=== PATIENT | male | born 2000 | race Two or more races ===

== ENCOUNTER 2024-07-20 09:18 | Emergency (ER) | payer OTHER, SELFPAY ==
[2024-07-20 09:20] VITALS: BP 100/84
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
[2024-07-20 10:05] LABS: % Basophils 0.8 % (0-2); % Eosinophils 3.2 % (0-6); % Immature Granulocytes 0.4 % (0-0.5); % Lymphocytes 16.4 % (20.5-51.1); % Monocytes 7.4 % (1.7-9.3); % Neutrophils 71.8 % (42.2-75.2); Absolute Basophils 0.1 10^3/uL (0-0.2); Absolute Eosinophils 0.4 10^3/uL (0-0.7); Absolute Immature Granulocytes 0.1 10^3/uL (0-0.05); Absolute Monocytes 0.9 10^3/uL (0.1-0.6); Absolute Neutrophils 8.6 10^3/uL (1.4-6.5); Hematocrit 43.7 % (39.0-52.0); Hemoglobin 14.8 g/dL (13.0-18.0); Mean Corp Hgb Conc. 33.9 g/dL (33.0-37.0); Mean Corpuscular Hgb 26.9 pg (27.0-31.0); Mean Corpuscular Volume 79.5 fL (80.0-94.0); Mean Platelet Volume 12.6 fL (7.4-10.4); Nucleated Red Blood Cells % 0 % (-); Platelet Count 238 10^3/uL (130-400); Red Cell Dist. Width 13.1 % (11.5-14.5)
[2024-07-20 10:17] LABS: ALT (SGPT) 25 U/L (0-50); AST (SGOT) 37 U/L (17-59); Albumin 5.1 g/dl (3.5-5.0); Alkaline Phosphatase 64 U/L (38-126); Blood Urea Nitrogen 18 mg/dl (9-20); Calcium 10.7 mg/dl (8.4-10.2); Carbon Dioxide 23 mmol/L (22-30); Chloride 103 mmol/L (98-107); Glucose 97 mg/dl (70-99); Potassium 5.2 mmol/L (3.5-5.1); Sodium 140 mmol/L (135-145); Total Bilirubin 1.3 mg/dl (0.2-1.3); Total Protein 8.1 g/dl (6.3-8.2); eGFR > 60.00
[2024-07-20 10:46] LABS: TSH Reflex To Free T4 4.16 uIU/ml (0.47-4.68)
[2024-07-20] MEDS: SAPHRIS 10 MG SL (10:51)
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
== END 2024-07-20 14:12 | disposition home or self-care (01) ==
LOC: EMR 09:18
PROVIDERS: CONSULT PHYSICIAN Psychiatry & Neurology Psychiatry; EMERGENCY PHYSICIAN Emergency Medicine
DX: F32.3 Major depressive disorder, single episode, severe with psychotic features (principal); R45.850 Homicidal ideations; F22 Delusional disorders; E03.9 Hypothyroidism, unspecified; K58.9 Irritable bowel syndrome, unspecified; F17.290 Nicotine dependence, other tobacco product, uncomplicated
CPT/HCPCS: 99284; 80053; 84443; 85025

== ENCOUNTER 2024-11-05 18:38 | Emergency (ER) | payer OTHER, SELFPAY ==
[2024-11-05] VITALS (7 sets, daily range): BP systolic 98–120; BP diastolic 43–65
[2024-11-05] MEDS: NSS 1000 IV (19:03)
[2024-11-05] MEDS: ATIVAN 2 MG IV (19:04)
--- NOTE | 2024-11-05 19:05 | ED.GENMED ---
History of Present Illness
<Filiberto Murphy DO - Last Filed: 11/07/24 17:48>
General
Chief Complaint: Overdose Unintentional
Source: ambulance crew
Time Seen by Provider: 11/05/24 18:42
History of Present Illness
History of Present Illness:
24-year-old male presents to the emergency room via ambulance. He evidently called 911 himself from his family home. When medics arrived he was awake but not answering questions. There appeared to be a significant amount of THC ampules and vapes
about. His family did endorse the fact he uses THC significantly. Patient had been at his baseline earlier today. Here the patient will smile at certain questions but is not answering questions. He did yell out which when an IV was placed and
became a bit agitated requiring him to be restrained for the IV placement.
Past History
<Filiberto Murphy DO - Last Filed: 11/07/24 17:48>
Past History
ED Past Medical History: Hypothyroidism and Other (IBS)
ED Past Surgical History: None
Social History
Tobacco: Former smoker
Alcohol: None
Drug: Marijuana (occassional)
Personal: Single
Living: with family
Employment: Student
Phy Exam
<Filiberto Murphy DO - Last Filed: 11/07/24 17:48>
Physical Exam
Physical Exam:
General: Awake but not answering questions.
Vitals: unremarkable
Head: Atraumatic
Eyes: Pupils equal at 5 mm, EOMI
Throat: Airway intact, no exudates
Neck: Trachea midline
Lungs: Clear and equal b/l
Heart: Regular rate, no murmurs
Abd: Soft, Nontender, No pulsatile mass
Neuro: Cranial nerves intact, patient does not move to command but is moving all extremities spontaneously, muscle strength equal bilaterally
Skin: Warm, dry, no rash
Extremities: pulses equal b/l, no edema
Course
<Filiberto HOctavio Murphy, DO - Last Filed: 11/07/24 17:48>
Orders/Labs/Results
Orders:
Orders
11/05/24 18:53
Lorazepam [Ativan] 2 mg .ROUTE .STK-MED ONE
11/05/24 18:57
Urine Drug Abuse Screen Urgent
Date Specimen was Collected: 11/06/24
Time Specimen was Collected: 01:09
0.9% Sodium Chloride 1000 ml [Nss] 1,000 ml IV BOLUS
11/05/24 19:00
Acetaminophen Urgent
Alcohol Urgent
Complete Blood Count/With Diff Urgent
Comprehensive Metabolic Panel Urgent
Salicylate Urgent
11/05/24 19:03
Lorazepam [Ativan] 2 mg IV NOW STA
11/05/24 19:08
Electrocardiogram (*1) Urgent
Reason for Study: QTc Monitoring
EKG- Treatment ONCE
11/05/24 19:39
CT Head W/o Iv Contrast Urgent
Comment:
Reason For Exam: altered mental status
11/06/24 01:10
Fentanyl, Urine Urgent
11/06/24 01:37
Asenapine Sublingual [Saphris] 5 mg .ROUTE .STK-MED ONE
Asenapine Sublingual [Saphris] 5 mg SL NOW STA
Abnormal Lab Results
11/05/24 11/06/24
19:00 01:10
WBC 13.3 H 10^3/uL
(4.8-10.8)
MPV 12.7 H fL
(7.4-10.4)
Abs Immat Gran (auto) 0.1 H 10^3/uL
(0-0.05)
Absolute Neuts (auto) 7.9 H 10^3/uL
(1.4-6.5)
Absolute Lymphs (auto) 3.6 H 10^3/uL
(1.2-3.4)
Absolute Monos (auto) 1.1 H 10^3/uL
(0.1-0.6)
BUN 22 H mg/dl
(9-20)
Glucose 121 H mg/dl
(70-99)
Salicylates < 1.0 L mg/dl
(2.0-20.0)
Acetaminophen < 10 L ug/ml
(10-30)
U Benzodiazepines Scrn Positive H
(Negative)
U Marijuana (THC) Screen Positive H
(Negative)
11/05/24 19:00
11/05/24 19:00
Vital Signs
Initial and Last Documented VS:
Initial Vital Signs
Pulse Resp
89 28
11/05/24 18:42 11/05/24 18:42
Last Documented Vital Signs
Temp Pulse Resp BP Pulse Ox
97.7 F 64 15 104/64 99
11/06/24 06:12 11/06/24 07:11 11/06/24 07:11 11/06/24 07:11 11/06/24 07:11
<Faviola Gannon, DO - Last Filed: 11/06/24 07:06>
Orders/Labs/Results
Orders:
Orders
11/05/24 18:53
Lorazepam [Ativan] 2 mg .ROUTE .STK-MED ONE
11/05/24 18:57
Urine Drug Abuse Screen Urgent
Date Specimen was Collected: 11/06/24
Time Specimen was Collected: 01:09
0.9% Sodium Chloride 1000 ml [Nss] 1,000 ml IV BOLUS
11/05/24 19:00
Acetaminophen Urgent
Alcohol Urgent
Complete Blood Count/With Diff Urgent
Comprehensive Metabolic Panel Urgent
Salicylate Urgent
11/05/24 19:03
Lorazepam [Ativan] 2 mg IV NOW STA
11/05/24 19:08
Electrocardiogram (*1) Urgent
Reason for Study: QTc Monitoring
EKG- Treatment ONCE
11/05/24 19:39
CT Head W/o Iv Contrast Urgent
Comment:
Reason For Exam: altered mental status
11/06/24 01:10
Fentanyl, Urine Urgent
11/06/24 01:37
Asenapine Sublingual [Saphris] 5 mg .ROUTE .STK-MED ONE
Asenapine Sublingual [Saphris] 5 mg SL NOW STA
Abnormal Lab Results
11/05/24 11/06/24
19:00 01:10
WBC 13.3 H 10^3/uL
(4.8-10.8)
MPV 12.7 H fL
(7.4-10.4)
Abs Immat Gran (auto) 0.1 H 10^3/uL
(0-0.05)
Absolute Neuts (auto) 7.9 H 10^3/uL
(1.4-6.5)
Absolute Lymphs (auto) 3.6 H 10^3/uL
(1.2-3.4)
Absolute Monos (auto) 1.1 H 10^3/uL
(0.1-0.6)
BUN 22 H mg/dl
(9-20)
Glucose 121 H mg/dl
(70-99)
Salicylates < 1.0 L mg/dl
(2.0-20.0)
Acetaminophen < 10 L ug/ml
(10-30)
U Benzodiazepines Scrn Positive H
(Negative)
U Marijuana (THC) Screen Positive H
(Negative)
11/05/24 19:00
11/05/24 19:00
Vital Signs
Initial and Last Documented VS:
Initial Vital Signs
Pulse Resp
89 28
11/05/24 18:42 11/05/24 18:42
Last Documented Vital Signs
Temp Pulse Resp BP Pulse Ox
97.7 F 64 15 104/64 99
11/06/24 06:12 11/06/24 07:11 11/06/24 07:11 11/06/24 07:11 11/06/24 07:11
<Filiberto Murphy, DO - Last Filed: 11/07/24 17:48>
MDM/Problems Addressed
Differential Diagnosis Includes:
alcohol intox, marijuana/thc intoxication, intracranial bleed
MDM/Problems Addressed:
Patient presents to the emergency room with decreased level of consciousness, being nonverbal. Evidently the patient called 9 1 himself. Patient became somewhat agitated here in the emergency room with the IV stick. He did require to be
restrained for short time until the IV was over. Patient was given 2 mg of lorazepam which did adequately calm him down. At the time my shift was over the patient was still sleeping. He was arousable and stable but not at a situation where he can
be discharged. Patient signed out to Dr. Gannon.
<Faviola Gannon DO - Last Filed: 11/06/24 07:06>
*Radiology
Radiology exam reviewed: radiology read reviewed
*Pulse Oximetry
Patient hypoxic: no
*Critical Care Note
Total Time (30-74mins, 75-104mins- exclusive of procedures): Not Applicable
<Faviola Gannon DO - Last Filed: 11/06/24 07:06>
Update Note
Update Note:
01:30
pt is now awake but remains quite confused, agitated, restless and only minimally verbal. He can be directed to a point but only fleetingly cooperative.
He remains at significant risk for fall
He remains hemodynamically stable
UDS is pending
Will medicate with Saphris
Continue 1:1 observation
Prior records reviewed. Patient was evaluated in this ED in June with concern for major depression with paranoid thoughts, evaluated by psychiatrist who suspected major depression with psychotic features. Recommended initiation of Lexapro as
well as Seroquel. Plan was for follow-up with [facility] psychiatric services.
At this point unclear if patient has been following with [facility]. Unclear if he is on any psychiatric medications.
During that ED visit in June there was report of no drug use however UDS 2020 was only positive for THC. UDS not performed during ED visit June 2024.
According to EMS report tonshannan, patient was found with multiple THC vape pens.
Current presentation could certainly be THC intoxication. Must also consider acute exacerbation of psychosis.
CT of the head is unremarkable.
He is afebrile. There has been no report of recent URI nor febrile illness. Nothing to suggest meningitis/encephalitis.
06:15
Patient has had no further agitation.
Has been sleeping after 1 dose of Saphris.
He is now awake, communicative, has ambulated to and from the bathroom to void.
He has consumed a snack as well as juice.
Currently offers no complaints, denies wanting to hurt himself.
He is eager to be discharged to home.
Will contact family.
Patient has been encouraged to discontinue THC use.
Prompt follow-up with PCP for recheck.
ED Attending Note
<Filiberto Murphy, DO - Last Filed: 11/07/24 17:48>
-
Portions of this chart may have been created with voice recognition software.� Occasional wrong word or��sound alike� substitutions may have occurred due to the inherent limitations of voice recognition software.
Discharge Plan
Departure
Patient Disposition: Home (Routine Discharge)
Date of Disposition: 11/06/24
Time of Disposition: 06:23
Patient with high blood pressure during this ER visit?: No
Condition: Good
Discharge Problem:
Accidental marijuana overdose
Instructions: Cannabis use disorder, Accidental Overdose (DC)
Prescriptions:
No Action
quetiapine [Seroquel XR] 50 mg tablet extended release 24 hr
50 mg PO HS Qty: 30 0RF
escitalopram oxalate [Lexapro] 10 mg tablet
10 mg PO ONCE Qty: 30 0RF
Referrals:
UNKNOWN - PT DOES,NOT KNOW [Family Provider] -
Interventions
Interventions:
*Risk Screen - Suicide Last Done: 11/05/24 18:44
*General Assessment Last Done: 11/05/24 18:44
*Neglect/Abuse Screening Last Done: 11/05/24 18:44
ED- Fall Risk Assessment Last Done: 11/05/24 23:21
*ED COVID-19 Vaccine History Last Done: 11/05/24 18:44
*Nursing Disposition Last Done: 11/06/24 07:36
ED- Cardiac Assessment Last Done: 11/05/24 21:21
ED- Neurological Assessment Last Done: 11/06/24 00:30
ED-Psychological Assessment Last Done: 11/06/24 00:30
ED- Pulmonary Assessment Last Done: 11/05/24 21:21
Discharge Date and Time
Discharge Date/Time: 11/06/24 07:36
Print Language: FIJIAN
[2024-11-05 19:07] LABS: % Basophils 0.5 % (0-2); % Eosinophils 4.6 % (0-6); % Immature Granulocytes 0.4 % (0-0.5); % Lymphocytes 27.4 % (20.5-51.1); % Monocytes 8.1 % (1.7-9.3); Absolute Basophils 0.1 10^3/uL (0-0.2); Absolute Eosinophils 0.6 10^3/uL (0-0.7); Absolute Immature Granulocytes 0.1 10^3/uL (0-0.05); Absolute Lymphocytes 3.6 10^3/uL (1.2-3.4); Absolute Monocytes 1.1 10^3/uL (0.1-0.6); Absolute Neutrophils 7.9 10^3/uL (1.4-6.5); Hematocrit 42.4 % (39.0-52.0); Mean Corpuscular Hgb 27.5 pg (27.0-31.0); Mean Corpuscular Volume 83.3 fL (80.0-94.0); Mean Platelet Volume 12.7 fL (7.4-10.4); Nucleated Red Blood Cells % 0 % (-); Platelet Count 214 10^3/uL (130-400); Red Blood Cell Count 5.09 10^6/uL (4.70-6.10); Red Cell Dist. Width 13.4 % (11.5-14.5); White Blood Cell Count 13.3 10^3/uL (4.8-10.8)
[2024-11-05 19:23] LABS: ALT (SGPT) 18 U/L (0-50); AST (SGOT) 23 U/L (17-59); Acetaminophen < 10 ug/ml (10-30); Albumin 4.4 g/dl (3.5-5.0); Alkaline Phosphatase 55 U/L (38-126); Blood Urea Nitrogen 22 mg/dl (9-20); Calcium 9.3 mg/dl (8.4-10.2); Carbon Dioxide 24 mmol/L (22-30); Chloride 105 mmol/L (98-107); Glucose 121 mg/dl (70-99); Potassium 4.7 mmol/L (3.5-5.1); Salicylate < 1.0 mg/dl (2.0-20.0); Sodium 141 mmol/L (135-145); Total Bilirubin 0.6 mg/dl (0.2-1.3); Total Protein 7.4 g/dl (6.3-8.2); eGFR > 60.00
[2024-11-05 19:27] LABS: Alcohol None Detected
[2024-11-06 00:06] VITALS: BP 118/72
[2024-11-06 00:25] VITALS: BP 131/76
[2024-11-06 01:35] LABS: Amphetamines Negative (Negative); Barbiturates Negative (Negative); Benzodiazepines Positive (Negative); Buprenorphine Negative (Negative); Cocaine Negative (Negative); Marijuana Positive (Negative); Methadone Negative (Negative); Methamphetamines Negative (Negative); Opiates Negative (Negative); Phencyclidine Negative (Negative); Tricyclic Antidepressants Negative (Negative)
[2024-11-06] MEDS: SAPHRIS 5 MG SL (01:43)
[2024-11-06 01:53] LABS: Fentanyl, Urine Negative (Negative)
[2024-11-06 05:55] VITALS: BP 102/70
[2024-11-06 07:11] VITALS: BP 104/64
== END 2024-11-06 07:36 | disposition home or self-care (01) ==
LOC: EMR 18:38
PROVIDERS: Emergency Medicine; EMERGENCY PHYSICIAN Emergency Medicine
DX: T40.711A Poisoning by cannabis, accidental (unintentional), initial encounter (principal); Y92.9 Unspecified place or not applicable; E03.9 Hypothyroidism, unspecified; K58.9 Irritable bowel syndrome, unspecified; Z87.891 Personal history of nicotine dependence
CPT/HCPCS: 99284; 96374; 96361; 70450; 80053; 80143; 80179; 80306; 80307; 82077; 85025; 93005

== ENCOUNTER 2024-11-21 10:03 | Emergency (ER) | payer OTHER, SELFPAY ==
[2024-11-21 10:18] VITALS: BP 112/73
--- NOTE | 2024-11-21 10:24 | ED.GENMED ---
ED Provider Triage
<Ricky Bob PA-C - Last Filed: 11/21/24 10:24>
-
Patient seen by provider in Triage?: Seen in Triage
Attestation: A medical screening examination has been initiated by a qualified medical provider. Based on the assessment performed at this time, it has been determined that an emergent medical condition may exist and the patient has been informed
that further medical evaluation and possible additional diagnostic testing may be needed.
HPI: 24-year-old male presents with family for voluntary psychiatric admission. He was apparently arrested recently for various charges and part of the terms of his roberto which to seek inpatient mental health admission. No reported SI or HI, no
reported illicit substance use.
GENERAL: Alert , in no apparent distress
EYE: No visual abnormalities.
NECK: Trachea midline
ENT: No visible abnormalities.
LUNGS: No acute respiratory distress
NEUROLOGICAL: Alert and oriented
SKIN: Skin intact. No visible changes.
MUSCULOSKELETAL: Moving extremities normally
PSYCH: Normal and appropriate interaction.
This is a medical evaluation conducted in person to initiate diagnostic evaluation and provide initial therapeutics. Please see further documentation by the treating clinician.
History of Present Illness
<Ricky Bob PA-C - Last Filed: 11/21/24 10:24>
General
Chief Complaint: Crisis Evaluation
Time Seen by Provider: 11/21/24 10:58
<Filiberto Murphy DO - Last Filed: 11/21/24 16:05>
General
Source: patient
History of Present Illness
History of Present Illness:
24-year-old male brought to the emergency room by his mother to seek inpatient psychiatric care. Evidently patient was arrested yesterday after he was found sneaking into a local high school. Patient was arrested. He evidently gave a false name
and claimed to be in eleventh-grader at the school. Patient was evidently brought before a accounting generalist who did allow the patient to be released on roberto but mandated he seek inpatient psychiatric care. No significant psychiatric history
Past History
<Ricky Bob PA-C - Last Filed: 11/21/24 10:24>
Past History
ED Past Medical History: Hypothyroidism and Other (IBS)
ED Past Surgical History: None
Social History
Tobacco: Former smoker
Alcohol: None
Drug: Marijuana (occassional)
Personal: Single
Living: with family
Employment: Student
Phy Exam
<Filiberto Murphy DO - Last Filed: 11/21/24 16:05>
Physical Exam
Physical Exam:
General: Awake, Alert, somewhat bizarre affect, no distress
Vitals: unremarkable
Head: Atraumatic
Eyes: Pupils equal, EOMI
Throat: Airway intact, no exudates
Neck: Trachea midline
Lungs: Clear and equal b/l
Heart: Regular rate, no murmurs
Abd: Soft, Nontender, No pulsatile mass
Neuro: Nonfocal
Skin: Warm, dry, no rash
Extremities: pulses equal b/l, no edema
Course
<Ricky Bob PA-C - Last Filed: 11/21/24 10:24>
Orders/Labs/Results
Orders:
Orders
11/21/24 10:23
Crisis Consult Urgent
Reason for Consult: erratic behavior
11/21/24 10:26
Complete Blood Count/With Diff Urgent
Comprehensive Metabolic Panel Urgent
TSH Urgent
11/21/24 12:17
Lorazepam [Ativan] 2 mg .ROUTE .STK-MED ONE
11/21/24 12:20
Lorazepam [Ativan] 2 mg IM NOW STA
11/21/24 12:21
Olanzapine [Zyprexa] 10 mg .ROUTE .STK-MED ONE
Sterile Water [Sterile Water For Injection] 10 ml .ROUTE .STK-MED ONE
11/21/24 12:22
Olanzapine [Zyprexa] 10 mg IM NOW STA
11/21/24 12:25
Olanzapine [Zyprexa] 10 mg .ROUTE .STK-MED ONE
Sterile Water [Sterile Water For Injection] 10 ml .ROUTE .STK-MED ONE
11/21/24 12:30
1:1 Observation - Suicide/ Violent Behavior As Directed
Abnormal Lab Results
11/21/24
10:26
WBC 11.1 H 10^3/uL
(4.8-10.8)
MCHC 32.6 L g/dL
(33.0-37.0)
MPV 12.6 H fL
(7.4-10.4)
Abs Immat Gran (auto) 0.1 H 10^3/uL
(0-0.05)
Absolute Neuts (auto) 6.9 H 10^3/uL
(1.4-6.5)
Absolute Monos (auto) 0.9 H 10^3/uL
(0.1-0.6)
BUN 24 H mg/dl
(9-20)
Total Bilirubin 1.6 H mg/dl
(0.2-1.3)
11/21/24 10:26
11/21/24 10:26
Vital Signs
Initial and Last Documented VS:
Initial Vital Signs
Temp Pulse Resp BP Pulse Ox
98.2 F 74 16 112/73 98
11/21/24 10:18 11/21/24 10:18 11/21/24 10:18 11/21/24 10:18 11/21/24 10:18
Last Documented Vital Signs
Temp Pulse Resp BP Pulse Ox
98.2 F 74 18 112/73 98
11/21/24 10:18 11/21/24 10:18 11/21/24 11:00 11/21/24 10:18 11/21/24 10:18
<Filiberto Murphy, DO - Last Filed: 11/21/24 16:05>
Orders/Labs/Results
Orders:
Orders
11/21/24 10:23
Crisis Consult Urgent
Reason for Consult: erratic behavior
11/21/24 10:26
Complete Blood Count/With Diff Urgent
Comprehensive Metabolic Panel Urgent
TSH Urgent
11/21/24 12:17
Lorazepam [Ativan] 2 mg .ROUTE .STK-MED ONE
11/21/24 12:20
Lorazepam [Ativan] 2 mg IM NOW STA
11/21/24 12:21
Olanzapine [Zyprexa] 10 mg .ROUTE .STK-MED ONE
Sterile Water [Sterile Water For Injection] 10 ml .ROUTE .STK-MED ONE
11/21/24 12:22
Olanzapine [Zyprexa] 10 mg IM NOW STA
11/21/24 12:25
Olanzapine [Zyprexa] 10 mg .ROUTE .STK-MED ONE
Sterile Water [Sterile Water For Injection] 10 ml .ROUTE .STK-MED ONE
11/21/24 12:30
1:1 Observation - Suicide/ Violent Behavior As Directed
Abnormal Lab Results
11/21/24
10:26
WBC 11.1 H 10^3/uL
(4.8-10.8)
MCHC 32.6 L g/dL
(33.0-37.0)
MPV 12.6 H fL
(7.4-10.4)
Abs Immat Gran (auto) 0.1 H 10^3/uL
(0-0.05)
Absolute Neuts (auto) 6.9 H 10^3/uL
(1.4-6.5)
Absolute Monos (auto) 0.9 H 10^3/uL
(0.1-0.6)
BUN 24 H mg/dl
(9-20)
Total Bilirubin 1.6 H mg/dl
(0.2-1.3)
11/21/24 10:26
11/21/24 10:26
Vital Signs
Initial and Last Documented VS:
Initial Vital Signs
Temp Pulse Resp BP Pulse Ox
98.2 F 74 16 112/73 98
11/21/24 10:18 11/21/24 10:18 11/21/24 10:18 11/21/24 10:18 11/21/24 10:18
Last Documented Vital Signs
Temp Pulse Resp BP Pulse Ox
98.2 F 74 18 112/73 98
11/21/24 10:18 11/21/24 10:18 11/21/24 11:00 11/21/24 10:18 11/21/24 10:18
Fraciscolt;Filiberto Murphy DO - Last Filed: 11/21/24 16:05>
MDM/Problems Addressed
Differential Diagnosis Includes:
Depression, bipolar disease, schizophrenia
MDM/Problems Addressed:
Patient brought by family to seek inpatient psychiatric treatment. Patient denies suicidal homicidal ideations. Patient initially cooperative with the plan however he suddenly decided he wanted to leave. He was initially restrained while the
family and I discussed whether or not they felt the patient should be evaluated against his will. Initially they did indicate that thought the patient was a risk to himself or others and incapable of caring for himself however after discussing the
situation further with Kathy Candelario they have decided against following a 302. Therefore we will no longer have the basis to hold the patient against as well. Physical restraints removed. Patient again was indicating he will be cooperative with
voluntary psychiatric admission. However that he then promptly decided he did not want to stay. Given there is no evidence for homicidal, suicidal ideations and his family does not feel he is psychiatrically ill enough for 302 the patient was
allowed to leave. There is no testing that I thought was necessary that was not performed. Therefore we will consider the patient essentially discharged as he no longer wants to stay for the reason he came
<Filiberto Murphy DO - Last Filed: 11/21/24 16:05>
*Critical Care Note
Total Time (30-74mins, 75-104mins- exclusive of procedures): Not Applicable
ED Attending Note
<Ricky Bob PA-C - Last Filed: 11/21/24 10:24>
-
Portions of this chart may have been created with voice recognition software.� Occasional wrong word or��sound alike� substitutions may have occurred due to the inherent limitations of voice recognition software.
Discharge Plan
Departure
Patient Disposition: Home (Routine Discharge)
Patient with high blood pressure during this ER visit?: No
Condition: Fair
Discharge Problem:
Anxiety
Instructions: Anxiety, Adult (DC)
Prescriptions:
No Action
quetiapine [Seroquel XR] 50 mg tablet extended release 24 hr
50 mg PO HS Qty: 30 0RF
escitalopram oxalate [Lexapro] 10 mg tablet
10 mg PO ONCE Qty: 30 0RF
Referrals:
UNKNOWN - PT NOT,INTERVIEWE [Family Provider] -
Interventions
Interventions:
*Risk Screen - Suicide Last Done: 11/21/24 10:09
*General Assessment Last Done: 11/21/24 11:54
*Neglect/Abuse Screening Last Done: 11/21/24 11:55
ED- Fall Risk Assessment Last Done: 11/21/24 13:05
*ED COVID-19 Vaccine History Last Done: 11/21/24 11:54
*Nursing Disposition Last Done: 11/21/24 13:05
ED-Psychological Assessment Last Done: 11/21/24 11:55
Discharge Date and Time
Discharge Date/Time: 11/21/24 13:05
Print Language: SAUDI ARABIAN
[2024-11-21 10:38] LABS: % Basophils 0.5 % (0-2); % Eosinophils 4.8 % (0-6); % Immature Granulocytes 0.5 % (0-0.5); % Monocytes 7.7 % (1.7-9.3); % Neutrophils 62.5 % (42.2-75.2); Absolute Basophils 0.1 10^3/uL (0-0.2); Absolute Eosinophils 0.5 10^3/uL (0-0.7); Absolute Immature Granulocytes 0.1 10^3/uL (0-0.05); Absolute Lymphocytes 2.7 10^3/uL (1.2-3.4); Absolute Monocytes 0.9 10^3/uL (0.1-0.6); Absolute Neutrophils 6.9 10^3/uL (1.4-6.5); Hematocrit 43.6 % (39.0-52.0); Hemoglobin 14.2 g/dL (13.0-18.0); Mean Corp Hgb Conc. 32.6 g/dL (33.0-37.0); Mean Corpuscular Hgb 27.2 pg (27.0-31.0); Mean Corpuscular Volume 83.4 fL (80.0-94.0); Mean Platelet Volume 12.6 fL (7.4-10.4); Nucleated Red Blood Cells % 0 % (-); Platelet Count 238 10^3/uL (130-400); Red Blood Cell Count 5.23 10^6/uL (4.70-6.10); Red Cell Dist. Width 13.4 % (11.5-14.5); White Blood Cell Count 11.1 10^3/uL (4.8-10.8)
[2024-11-21 10:51] LABS: ALT (SGPT) 17 U/L (0-50); AST (SGOT) 21 U/L (17-59); Albumin 4.7 g/dl (3.5-5.0); Alkaline Phosphatase 52 U/L (38-126); Blood Urea Nitrogen 24 mg/dl (9-20); Calcium 8.9 mg/dl (8.4-10.2); Carbon Dioxide 28 mmol/L (22-30); Chloride 100 mmol/L (98-107); Glucose 73 mg/dl (70-99); Potassium 4.1 mmol/L (3.5-5.1); Sodium 139 mmol/L (135-145); Total Bilirubin 1.6 mg/dl (0.2-1.3); Total Protein 7.8 g/dl (6.3-8.2); eGFR > 60.00
[2024-11-21] MEDS: ZYPREXA 10 MG IM (12:23)
== END 2024-11-21 13:05 | disposition home or self-care (01) ==
LOC: EMR 10:03
PROVIDERS: Physician Assistant; EMERGENCY PHYSICIAN Emergency Medicine
DX: F41.9 Anxiety disorder, unspecified (principal); Z87.891 Personal history of nicotine dependence; Z65.3 Problems related to other legal circumstances
CPT/HCPCS: 99284; 96372; 80053; 84443; 85025; J2358